=== PATIENT | male | born 1960 | race Caucasian/White ===

== ENCOUNTER 2022-08-13 08:02 | Emergency (ER) | payer SELFPAY ==
[~2022-08-13] VITALS: Ht 175.3 cm; Wt 81.0 kg
[2022-08-13 08:11] VITALS: BP 156/88
== END 2022-08-13 10:11 | disposition left against medical advice (07) ==
LOC: EDBD 08:02 → ER 08:02
DX: R40.4 Transient alteration of awareness (principal); Z53.21 Procedure and treatment not carried out due to patient leaving prior to being seen by health care provider